=== PATIENT | female | born 1970 | race Caucasian/White ===

== ENCOUNTER → 2016-12-27 | Outpatient (CLI) | payer OTHER | LOC: BMCIMAGING 09:38 | PROVIDERS: ATTEND Internal Medicine | DX: R05 Cough (principal); R53.81 Other malaise; G50.1 Atypical facial pain ==

== ENCOUNTER → 2017-03-31 | Outpatient (CLI) | payer OTHER | LOC: FIMAGING 15:55 | PROVIDERS: ATTEND Internal Medicine | DX: Z12.31 Encounter for screening mammogram for malignant neoplasm of breast (principal) | CPT/HCPCS: G0202 ==

== ENCOUNTER → 2018-04-04 | Outpatient (CLI) | payer OTHER | DX: Z12.31 Encounter for screening mammogram for malignant neoplasm of breast (principal) ==